=== PATIENT | male | born 1995 | race African-American/Black ===

== ENCOUNTER 2020-10-15 20:59 | Emergency (ER) | payer SELFPAY ==
[~2020-10-15] VITALS: Ht 175.3 cm; Wt 108.9 kg
[2020-10-15] MEDS ORDERED: IBUPROFEN 800 MG TAB PO ONE (21:15)
[2020-10-15 23:28] LABS: Basophils # (auto) 0 10 ^3/uL (0-0.2); Eosinophils # (auto) 0 10 ^3/uL (0-0.8); Hematocrit 43.1 % (41.0-53.0); Hemoglobin 14.5 g/dL (13.5-17.5); Lymphocytes # (auto) 0.9 10 ^3/uL (0.4-5.4); Lymphocytes % (auto) 22.6 % (10.0-50.0); Mean Corpuscular Hemoglobin 27.7 pg (28.0-32.0); Mean Corpuscular Hgb Conc. 33.6 g/dL (32.0-36.0); Mean Corpuscular Volume 82.5 fL (80.0-100.0); Monocytes # (auto) 0.4 10 ^3/uL (0-1.3); Monocytes % (auto) 8.7 % (0.0-12.0); Neutrophils # (auto) 2.8 10 ^3/uL (1.6-8.6); Neutrophils % (auto) 67.7 % (37.0-80.0); Nucleated Red Blood Cells % 0.2 %; Red Blood Cells 5.23 10^6/uL (4.5-5.90); White Blood Cell 4.1 10^3/uL (4.4-10.8)
[2020-10-15 23:48] LABS: Albumin 4.1 g/dL (3.4-5.0); Magnesium 2.2 mg/dL (1.6-2.6); Potassium 3.7 mmol/L (3.5-5.1)
[2020-10-15 23:52] LABS: Bilirubin, Total 0.7 mg/dL (0.2-1.0); CRP High Sensitivity 0.91 mg/dL (< 0.3); Total Protein 8.3 g/dL (6.4-8.2)
[2020-10-16] MEDS ORDERED: DOXYCYCLINE 100MG/250ML 250 ML IV ONE (00:45)
[2020-10-16] MEDS ORDERED: cefTRIAXone SOD 1,000 MG VL IM ONE (00:45)
[2020-10-16] MEDS ORDERED: DexAMETHasone SOD PHOS 10MG/1ML VIAL INJ IV ONE (00:45)
[2020-10-16] MEDS ORDERED: SODIUM CHLORIDE 0.9% 1,000 ML IV ONE (00:45)
[2020-10-16 04:03] VITALS: BP 129/79
== END 2020-10-16 06:25 | disposition home or self-care (01) ==
LOC: ER 20:59
DX: U07.1 COVID-19 (principal); R05 Cough; R50.9 Fever, unspecified; E66.9 Obesity, unspecified; Z68.35 Body mass index [BMI] 35.0-35.9, adult
CPT/HCPCS: 36415; 71045; 80053; 82728; 83036; 83605; 83735; 85025; 85379; 85652; 86141; 87040; 87426; 96360; 99284; J0696; J1100; J3490

== ENCOUNTER 2020-10-22 02:00 | Inpatient (IN) | payer MEDICAID ==
[~2020-10-22] VITALS: Ht 175.3 cm; Wt 109.0 kg
[2020-10-22] MEDS ORDERED: ACETAMINOPHEN 325 MG TAB PO ONE (03:15)
[2020-10-22 04:10] LABS: Basophils # (auto) 0 10 ^3/uL (0-0.2); Basophils % (auto) 0.5 % (0.0-2.0); Eosinophils # (auto) 0 10 ^3/uL (0-0.8); Hematocrit 41.4 % (41.0-53.0); Hemoglobin 14.4 g/dL (13.5-17.5); Lymphocytes # (auto) 0.9 10 ^3/uL (0.4-5.4); Lymphocytes % (auto) 15.5 % (10.0-50.0); Mean Corpuscular Hemoglobin 27.9 pg (28.0-32.0); Mean Corpuscular Hgb Conc. 34.8 g/dL (32.0-36.0); Mean Corpuscular Volume 80.2 fL (80.0-100.0); Monocytes # (auto) 0.4 10 ^3/uL (0-1.3); Monocytes % (auto) 6.3 % (0.0-12.0); Neutrophils # (auto) 4.5 10 ^3/uL (1.6-8.6); Neutrophils % (auto) 77.7 % (37.0-80.0); Nucleated Red Blood Cells % 0.1 %; Red Blood Cells 5.16 10^6/uL (4.5-5.90); Red Cell Distribution Width 13.9 % (11.8-14.3); White Blood Cell 5.7 10^3/uL (4.4-10.8)
[2020-10-22 04:31] LABS: Albumin 3.4 g/dL (3.4-5.0); BUN/Creatinine Ratio 9.3; Calcium 8.6 mg/dL (8.5-10.1)
[2020-10-22 04:44] LABS: Total Protein 7.7 g/dL (6.4-8.2)
[2020-10-22] MEDS ORDERED: ONDANSETRON HCL 4 MG/2 ML VIAL IV PRN (05:15)
[2020-10-22] MEDS ORDERED: KETOROLAC TROMETH 30 MG/ML 1ML VIAL IV ONE (05:15)
[2020-10-22] MEDS ORDERED: HYDROcodone-ACET 5/325MG TAB PO PRN (05:15)
[2020-10-22] MEDS ORDERED: ACETAMINOPHEN 500 MG TAB PO PRN (05:15)
[2020-10-22] MEDS ORDERED: REMDESIVIR PER PHARMACY 0 ML IV SCH (05:15)
[2020-10-22] MEDS ORDERED: MORPHINE SULFATE INJECTION 2 MG/2 ML SYRG IV PRN (05:15)
[2020-10-22] MEDS ORDERED: NITROGLYCERIN 0.4 MG SL TAB SL PRN (05:15)
[2020-10-22] MEDS ORDERED: POTASSIUM CHL 20 Meq TABLET PO ONE (05:30)
[2020-10-22] MEDS: SODIUM CHLOR 0.9% PF (SALINE LOCK) 10ML VIAL/SYR IV SCH ×3 (06:00→22:00)
[2020-10-22 07:00] LABS: Urine Bacteria FEW /hpf (None Seen); Urine Blood Negative /uL (Negative); Urine Hyaline Cast FEW /lpf (0 - 2); Urine Mucus FEW (None Seen); Urine Specific Gravity 1.026 (1.001-1.035); Urine WBC 2 /hpf (0 - 3)
[2020-10-22] MEDS: cefTRIAXone 1GM/50ML D5W 50 ML IV SCH (08:09)
[2020-10-22] MEDS: ASCORBIC ACID 1,000 MG TAB PO SCH (08:10)
[2020-10-22] MEDS: CHOLECALCIFEROL (VITD3) 2,000 UNIT CAP/TAB PO SCH (08:10)
[2020-10-22] MEDS: DexAMETHasone SOD PHOS 10MG/1ML VIAL INJ IV SCH (08:10)
[2020-10-22] MEDS: FAMOTIDINE (10MG/ML) 2ML VL IV SCH ×2 (08:10→22:19)
[2020-10-22] MEDS: MULTIPLE VITAMIN TAB PO SCH (08:10)
[2020-10-22] MEDS: ZINC SULFATE 220mg CAP or TAB PO SCH (08:10)
[2020-10-22] MEDS: ENOXAPARIN SOD 40 MG/0.4 ML SYRINGE SC SCH ×2 (08:10→22:20)
[2020-10-22] MEDS: DOXYCYCLINE 100MG/250ML 250 ML IV SCH ×2 (11:53→22:19)
[2020-10-22] MEDS ORDERED: IOHEXOL 350 MG/ML 100ML IJ ONE (12:45)
[2020-10-22] MEDS: BUDESONIDE (INHALATION) 180 MCG IH IN SCH ×2 (13:48→22:00)
[2020-10-22] MEDS ORDERED: REMDESIVIR 200 MG in NS 210ml LOADING DOSE ADULT IV ONE (15:00)
[2020-10-23] VITALS (7 sets, daily range): BP systolic 98–136; BP diastolic 48–71
[2020-10-23] MEDS: SODIUM CHLOR 0.9% PF (SALINE LOCK) 10ML VIAL/SYR IV SCH ×3 (06:00→21:28)
[2020-10-23 06:03] LABS: Basophils # (auto) 0 10 ^3/uL (0-0.2); Basophils % (auto) 0.2 % (0.0-2.0); Eosinophils # (auto) 0 10 ^3/uL (0-0.8); Hematocrit 40.3 % (41.0-53.0); Hemoglobin 13.9 g/dL (13.5-17.5); Lymphocytes # (auto) 1.2 10 ^3/uL (0.4-5.4); Mean Corpuscular Hemoglobin 27.7 pg (28.0-32.0); Mean Corpuscular Hgb Conc. 34.4 g/dL (32.0-36.0); Mean Corpuscular Volume 80.4 fL (80.0-100.0); Monocytes # (auto) 0.3 10 ^3/uL (0-1.3); Monocytes % (auto) 5.6 % (0.0-12.0); Neutrophils # (auto) 4.1 10 ^3/uL (1.6-8.6); Neutrophils % (auto) 73.2 % (37.0-80.0); Nucleated Red Blood Cells % 0.1 %; Red Blood Cells 5.01 10^6/uL (4.5-5.90); White Blood Cell 5.6 10^3/uL (4.4-10.8)
[2020-10-23] MEDS: BUDESONIDE (INHALATION) 180 MCG IH IN SCH ×3 (06:16→19:39)
[2020-10-23] MEDS: ALBUTEROL SULF HFA 90MCG INH 200DOSE IN PRN ×3 (06:16→19:39)
[2020-10-23 06:23] LABS: Calcium 8.5 mg/dL (8.5-10.1)
[2020-10-23 06:29] LABS: Albumin 2.7 g/dL (3.4-5.0); Bilirubin, Total 0.7 mg/dL (0.2-1.0); Potassium 3.2 mmol/L (3.5-5.1)
[2020-10-23] MEDS: cefTRIAXone 1GM/50ML D5W 50 ML IV SCH (08:42)
[2020-10-23] MEDS: DexAMETHasone SOD PHOS 10MG/1ML VIAL INJ IV SCH (08:42)
[2020-10-23] MEDS: ZINC SULFATE 220mg CAP or TAB PO SCH (08:42)
[2020-10-23] MEDS: FAMOTIDINE (10MG/ML) 2ML VL IV SCH ×2 (08:42→21:27)
[2020-10-23] MEDS: ENOXAPARIN SOD 40 MG/0.4 ML SYRINGE SC SCH ×2 (08:43→21:28)
[2020-10-23] MEDS: ASCORBIC ACID 1,000 MG TAB PO SCH (08:43)
[2020-10-23] MEDS: CHOLECALCIFEROL (VITD3) 2,000 UNIT CAP/TAB PO SCH (08:43)
[2020-10-23] MEDS: MULTIPLE VITAMIN TAB PO SCH (08:43)
[2020-10-23] MEDS: DOXYCYCLINE 100MG/250ML 250 ML IV SCH ×2 (09:50→21:27)
[2020-10-23] MEDS: REMDESIVIR 100mg 100 MG in SODIUM CHL 0.9% 230 ML IV SCH (15:27)
[2020-10-23] MEDS ORDERED: ALBUMIN 25% 100 ML IV ONE (23:00)
[2020-10-23] MEDS ORDERED: POTASSIUM CHL 20 Meq TABLET PO ONE (23:00)
[2020-10-24] VITALS: BP 111/63
[2020-10-24 05:30] VITALS: BP 115/58
[2020-10-24 05:53] LABS: Basophils # (auto) 0 10 ^3/uL (0-0.2); Basophils % (auto) 0.4 % (0.0-2.0); Eosinophils # (auto) 0 10 ^3/uL (0-0.8); Eosinophils % (auto) 0.1 % (0.0-7.0); Hematocrit 42.6 % (41.0-53.0); Lymphocytes # (auto) 1.1 10 ^3/uL (0.4-5.4); Lymphocytes % (auto) 19.5 % (10.0-50.0); Mean Corpuscular Hemoglobin 27.7 pg (28.0-32.0); Mean Corpuscular Hgb Conc. 32.9 g/dL (32.0-36.0); Monocytes # (auto) 0.4 10 ^3/uL (0-1.3); Neutrophils # (auto) 4.2 10 ^3/uL (1.6-8.6); Red Blood Cells 5.07 10^6/uL (4.5-5.90); Red Cell Distribution Width 13.7 % (11.8-14.3); White Blood Cell 5.7 10^3/uL (4.4-10.8)
[2020-10-24] MEDS: SODIUM CHLOR 0.9% PF (SALINE LOCK) 10ML VIAL/SYR IV SCH ×3 (06:00→21:26)
[2020-10-24 06:19] LABS: Albumin 2.9 g/dL (3.4-5.0); Calcium 8.7 mg/dL (8.5-10.1); Potassium 3.5 mmol/L (3.5-5.1)
[2020-10-24 06:23] LABS: BUN/Creatinine Ratio 16.7; Bilirubin, Total 0.7 mg/dL (0.2-1.0)
[2020-10-24] MEDS ORDERED: IVERMECTIN 3 MG TAB PO ONE (07:00)
[2020-10-24] MEDS: BUDESONIDE (INHALATION) 180 MCG IH IN SCH ×2 (07:10→19:34)
[2020-10-24] MEDS: ALBUTEROL SULF HFA 90MCG INH 200DOSE IN PRN ×2 (07:10→19:34)
[2020-10-24] MEDS: cefTRIAXone 1GM/50ML D5W 50 ML IV SCH (08:43)
[2020-10-24] MEDS: DexAMETHasone SOD PHOS 10MG/1ML VIAL INJ IV SCH (08:43)
[2020-10-24] MEDS: FAMOTIDINE (10MG/ML) 2ML VL IV SCH ×2 (08:43→21:24)
[2020-10-24] MEDS: CHOLECALCIFEROL (VITD3) 2,000 UNIT CAP/TAB PO SCH (08:44)
[2020-10-24] MEDS: MULTIPLE VITAMIN TAB PO SCH (08:44)
[2020-10-24] MEDS: ASCORBIC ACID 1,000 MG TAB PO SCH (08:44)
[2020-10-24] MEDS: ZINC SULFATE 220mg CAP or TAB PO SCH (08:44)
[2020-10-24] MEDS: ENOXAPARIN SOD 40 MG/0.4 ML SYRINGE SC SCH ×2 (08:45→21:24)
[2020-10-24 09:00] VITALS: BP 112/65
[2020-10-24] MEDS: DOXYCYCLINE 100MG/250ML 250 ML IV SCH ×2 (10:09→21:24)
[2020-10-24 13:00] VITALS: BP 102/52
[2020-10-24] MEDS: REMDESIVIR 100mg 100 MG in SODIUM CHL 0.9% 230 ML IV SCH (15:07)
[2020-10-24 17:00] VITALS: BP 123/67
[2020-10-24 22:00] VITALS: BP 121/67
[2020-10-24] MEDS ORDERED: POTASSIUM CHL 20 Meq TABLET PO ONE (23:45)
[2020-10-25 05:00] VITALS: BP 113/64
[2020-10-25] MEDS: SODIUM CHLOR 0.9% PF (SALINE LOCK) 10ML VIAL/SYR IV SCH ×2 (05:38→15:14)
[2020-10-25 06:56] LABS: Calcium 8.7 mg/dL (8.5-10.1); Potassium 3.2 mmol/L (3.5-5.1)
[2020-10-25] MEDS ORDERED: IVERMECTIN 3 MG TAB PO SCH (07:00)
[2020-10-25 07:01] LABS: Bilirubin, Total 0.7 mg/dL (0.2-1.0); Total Protein 7.1 g/dL (6.4-8.2)
[2020-10-25 09:27] VITALS: BP 115/71
[2020-10-25] MEDS: BUDESONIDE (INHALATION) 180 MCG IH IN SCH (09:51)
[2020-10-25] MEDS: ALBUTEROL SULF HFA 90MCG INH 200DOSE IN PRN (09:52)
[2020-10-25] MEDS: MULTIPLE VITAMIN TAB PO SCH (10:03)
[2020-10-25] MEDS: cefTRIAXone 1GM/50ML D5W 50 ML IV SCH (10:03)
[2020-10-25] MEDS: FAMOTIDINE (10MG/ML) 2ML VL IV SCH (10:03)
[2020-10-25] MEDS: ENOXAPARIN SOD 40 MG/0.4 ML SYRINGE SC SCH (10:03)
[2020-10-25] MEDS: DexAMETHasone SOD PHOS 10MG/1ML VIAL INJ IV SCH (10:03)
[2020-10-25] MEDS: CHOLECALCIFEROL (VITD3) 2,000 UNIT CAP/TAB PO SCH (10:04)
[2020-10-25] MEDS: ZINC SULFATE 220mg CAP or TAB PO SCH (10:04)
[2020-10-25] MEDS: ASCORBIC ACID 1,000 MG TAB PO SCH (10:04)
[2020-10-25] MEDS: DOXYCYCLINE 100MG/250ML 250 ML IV SCH (11:36)
[2020-10-25 12:53] VITALS: BP 115/71
[2020-10-25 13:00] VITALS: BP 109/57
[2020-10-25] MEDS: REMDESIVIR 100mg 100 MG in SODIUM CHL 0.9% 230 ML IV SCH (15:35)
[2020-10-25 16:00] VITALS: BP 115/60
== END 2020-10-25 17:20 | disposition home or self-care (01) | DRG 137 ==
LOC: ER 02:00 → OVERFLOW 05:20 → EAST 23:46
PROVIDERS: ADMIT Nurse Practitioner Family; ATTEND Family Medicine
PROC: XW033E5 Introduction of Remdesivir Anti-infective into Peripheral Vein, Percutaneous Approach, New Technology Group 5 (ICD-10-PCS; principal; 2020-10-22)
DX: U07.1 COVID-19 (principal); J96.01 Acute respiratory failure with hypoxia; J12.82 Pneumonia due to coronavirus disease 2019; E87.6 Hypokalemia; R79.89 Other specified abnormal findings of blood chemistry
CPT/HCPCS: 36415; 71045; 71250; 71275; 80053; 81001; 83605; 83735; 85025; 85379; 87426; 93005; 93970; 94640; 96365; 96366; 96367; 96372; 96375; G0378; J0696; J1100; J1885; J3490; P9047